=== PATIENT | female | born 1950 | race Caucasian/White ===

== ENCOUNTER 2017-12-22 16:31 | Emergency (ER) | payer MEDICARE, MEDICAID ==
--- NOTE | 2017-12-22 17:53 | RAD ---
LEFT SHOULDER THREE VIEWS; 12/22/17 HISTORY: Injury. Pain. Fall last week. FINDINGS: There are degenerative changes in the left shoulder with osteophyte formation and loss of joint space height. There is patchy bone demineralization. Posttraumatic fractures are not appreciated. The visu alized ribs are unremarkable. IMPRESSION: No posttraumatic sequela. POS: JUDE
== END 2017-12-22 18:10 | disposition home or self-care (01) ==
LOC: SCSER 16:31
DX: S40.012A Contusion of left shoulder, initial encounter (principal); M15.9 Polyosteoarthritis, unspecified; Z87.891 Personal history of nicotine dependence; W18.30XA Fall on same level, unspecified, initial encounter

== ENCOUNTER 2018-03-20 11:45 | Outpatient (CLI) | payer MEDICARE ==
[~2018-03-20 11:45] MED LIST: Gadobenate Dimeglumine 529 MG/1 ML (20ML VIAL) ONE
--- NOTE | 2018-03-28 16:35 | MRI ---
MRI BRAIN WITH AND WITHOUT CONTRAST: 03/28/18 COMPARISON: 01/19/11. HISTORY: Brain tumor. Seizures. TECHNIQUE: Brain MRI is performed with and without intravenous gadolinium administration. Multisequential, multi planar imaging is performed. FINDINGS: There is redemonstration of postoperative change involving the right frontal calvarium. There is sta ble malacic and gliotic change involving the right frontal lobe. Stable cystic lesion involving the r ight frontal region. There is no significant peripheral enhancement. There appears to be a drainage c atheter within this collection that traverses the collection and terminates in the anterior body of t he right lateral ventricle. On the T2 weighted images, this lesion measures 3.8 cm anterior posterior x 3.8 cm mediolateral x 4.7 cm craniocaudal. There is mild enhancement of the dura underlying the andersen rgical defect. There is no abnormal enhancement of the brain parenchyma. No midline shift. Basilar cisterns are patent. There is cortical hinton-white matter differentiation in the left cerebrum. T2 and FLAIR white matter hyperintensities in the left cerebrum are felt to be du e to chronic small vessel ischemic change. No evidence of hydrocephalus. Minimal mucosal thickening of the sinuses. There is some hemosiderin along the periphery of the operative site. When comparing FLAIR sequences, the degree of hyperintensity in the right frontotemporal region has n ot changed. IMPRESSION: 1. Redemonstration of a surgical cavity in the right frontal region. There is no associated enha ncement. Stable associated malacic and gliotic change. 2. There appears to be a catheter traversing the surgical cavity into the anterior aspect of the right lateral ventricle. No evidence of significant hydrocephalus. POS: DIANNA
== END 2018-03-20 11:46 | disposition home or self-care (01) ==
LOC: SCSMRI 11:45
PROVIDERS: ATTEND Psychiatry & Neurology Neurology
DX: G40.209 Localization-related (focal) (partial) symptomatic epilepsy and epileptic syndromes with complex partial seizures, not intractable, without status epilepticus (principal); Z98.890 Other specified postprocedural states
CPT/HCPCS: 70553; 82565; A9579